=== PATIENT | female | born 1995 | race Caucasian/White ===

== ENCOUNTER 2017-10-20 19:33 | Emergency (ER) | payer OTHER ==
[2017-10-20 19:44] VITALS: BP 160/79
--- NOTE | 2017-10-20 20:01 | UC ---
Cardiac HPI - HPI Summary HPI Summary: 22 yo female with the sudden onset yesterday of left sided CP while using an elliptical was sharp initially intense pain last 10 minutes since then has had mild left sided CP and she fells like she is not able to get a deep enough breath no n/v/d - History of Current Complaint Chief Complaint: UCChestPain Stated Complaint: CHEST PAIN, SHORTNESS OF BREATH Time Seen by Provider: 10/20/17 19:52 Hx Obtained From: Patient Hx Last Menstrual Period: 09/24/17 Onset/Duration: Sudden Onset Initial Severity: Severe Current Severity: Mild Pain Intensity: 2 Chest Pain Location: Discrete at: - left lateral Character: Pressure/Squeezing - now, Sharp/Stabbing - initially Alleviating Factor(s): Rest Associated Signs & Symptoms: Positive: Chest Pain, SOB - Allergy/Home Medications Allergies/Adverse Reactions: Allergies Allergy/AdvReac Type Severity Reaction Status Date / Time No Known Allergies Allergy Verified 10/20/17 19:44 Home Medications: Home Medications Norgestimate-Ethinyl Estradiol [Tri-Sprintec 0.18/0.215/0.25 mg-35 Mcg] 1 tab PO 10/20/17 [History] PMH/Surg Hx/FS Hx/Imm Hx Previously Healthy: Yes - Surgical History Surgical History: None - Family History Known Family History: Negative: Cardiac Disease, Hypertension, Diabetes - Social History Alcohol Use: Weekly Substance Use Type: Marijuana Substance Use Comment - Amount & Last Used: once every few months Smoking Status (MU): Never Smoked Tobacco Review of Systems Constitutional: Negative Skin: Negative Eyes: Negative ENT: Negative Respiratory: Shortness Of Breath Cardiovascular: Chest Pain Gastrointestinal: Negative Genitourinary: Negative Motor: Negative Neurovascular: Negative Musculoskeletal: Negative Neurological: Negative Psychological: Negative Is Patient Immunocompromised?: No All Other Systems Reviewed And Are Negative: Yes Physical Exam Triage Information Reviewed: Yes Appearance: Well-Appearing, No Pain Distress, Well-Nourished Vital Signs: Initial Vital Signs Temp 97.4 F 10/20/17 19:37 Pulse 86 10/20/17 19:37 Resp 20 10/20/17 19:37 BP 160/79 10/20/17 19:37 Pulse Ox 100 10/20/17 19:37 Vital Signs Reviewed: Yes Eyes: Positive: Conjunctiva Clear ENT: Positive: Hearing grossly normal. Negative: Nasal drainage, TMs normal, TM dull, TM red, Tonsillar swelling, Tonsillar exudate, Muffled voice, Hoarse voice, Dental tenderness Neck: Positive: Supple, Nontender, No Lymphadenopathy Respiratory: Positive: Lungs clear, Normal breath sounds, No respiratory distress, No accessory muscle use Cardiovascular: Positive: RRR, No Murmur Musculoskeletal: Positive: ROM Intact, No Edema Neurological: Positive: Alert Psychological Exam: Normal Skin Exam: Normal Diagnostics - Laboratory Diagnostic Studies Completed/Ordered: pOx 100 % comment: normal/ not hypoxic - Radiology No standard instances Xray Interpretation: No Acute Changes Radiology Interpretation Completed By: Radiologist - Assessment/Plan Course Of Treatment: patient refuses EKG - Clinical Impression Provider Diagnoses: chest pain of uncertain cause Discharge - Discharge Plan Condition: Stable Disposition: HOME Patient Education Materials: Noncardiac Chest Pain (ED) Referrals: No Primary Care Phys,NOPCP [Primary Care Provider] - Additional Instructions: your Chest XR was normal Your pulse ox was 100% (oxygen level high normal) heat recheck for new or worsening symptoms recheck in 3-5 days if not better
--- NOTE | 2017-10-20 20:24 | RAD ---
INDICATION: Shortness of breath. LEFT chest pain. COMPARISON: No relevant prior exams available on the [facility] [place] PACS for comparison. TECHNIQUE: Dual energy PA and routine lateral views of the chest were obtained. REPORT: Clear lungs and pleural spaces. Negative for pneumothorax. The heart, pulmonary vasculature, and mediastinal contours are unremarkable. Unremarkable osseous structures and soft tissue contours. IMPRESSION: No evidence for acute intrathoracic disease.
== END 2017-10-20 20:33 | disposition home or self-care (01) ==
LOC: UCCORT 19:33
DX: R07.9 Chest pain, unspecified (principal); Z53.20 Procedure and treatment not carried out because of patient's decision for unspecified reasons; F12.90 Cannabis use, unspecified, uncomplicated
CPT/HCPCS: 71046; 99201; G0463